=== PATIENT | female | born 1945 | race Caucasian/White ===

== ENCOUNTER 2019-07-07 14:56 | Emergency (ER) | payer MEDICARE, BC ==
[~2019-07-07] VITALS: Ht 157.5 cm; Wt 72.6 kg
[~2019-07-07 14:56] MED LIST: BAYER CHEWABLE81 MG PO; CENTRUM SILVER1 EAC4 PO; MUCINEX TA600 MG/TA2 PO; NORCO 7.5-3251 EACH; PERCOCET 7.5-31 EACH; PREDNISONE50 MG PO; VENTOLIN HFA 1818 GM INH; ZPAK PO
[2019-07-07 16:20] VITALS: BP 171/82
== END 2019-07-07 16:20 | disposition home or self-care (01) ==
LOC: M.ERS 14:56
DX: S70.11XA Contusion of right thigh, initial encounter (principal); S70.01XA Contusion of right hip, initial encounter; F17.210 Nicotine dependence, cigarettes, uncomplicated; Z90.49 Acquired absence of other specified parts of digestive tract; Z90.710 Acquired absence of both cervix and uterus; Z88.5 Allergy status to narcotic agent; Z88.2 Allergy status to sulfonamides; Z88.8 Allergy status to other drugs, medicaments and biological substances; W22.8XXA Striking against or struck by other objects, initial encounter; Y93.89 Activity, other specified; Y92.89 Other specified places as the place of occurrence of the external cause; Y99.8 Other external cause status

== ENCOUNTER 2020-11-15 15:27 | Emergency (ER) | payer MEDICARE, BC ==
[~2020-11-15] VITALS: Ht 157.5 cm; Wt 72.1 kg
[2020-11-15 16:09] LABS: ABSOLUTE EOSINOPHILS 0.1 thou/uL (0.0-0.7); ABSOLUTE LYMPHOCYTES 1.8 thou/uL (0.8-5.3); ABSOLUTE MONOCYTES 0.5 thou/uL (0.0-1.2); ABSOLUTE NEUTROPHILS 2.7 thou/uL (1.6-8.1); EOSINOPHILS 1.9 %; HEMATOCRIT 38.5 % (37.0-47.0); HEMOGLOBIN 13.3 gm/dL (12.0-15.0); LYMPHOCYTES 34.7 %; MCH 33.1 pg (26.0-34.0); MCHC 34.5 g/dL (28.0-37.0); MCV 95.9 fL (80.0-100.0); MONOCYTES 10.6 %; MPV 7.4 fl. (7.2-11.1); NUCLEATED RBCS 0 /100WBC; PLATELET COUNT* 320 thou/uL (150-400); POLYS 51.8 %; RBC 4.01 mil/uL (4.20-5.00); RDW-CV 13.5 % (10.5-14.5); WBC 5.2 thou/uL (4.0-11.0)
[2020-11-15 16:29] LABS: CALCIUM 9.2 mg/dL (8.5-10.1); CREATININE 0.8 mg/dL (0.6-1.3); POTASSIUM 4.4 mmol/L (3.5-5.1)
[2020-11-15 16:34] LABS: ALBUMIN 4.1 g/dL (3.4-5.0); TOTAL BILIRUBIN 0.3 mg/dL (<0.1-1.0); TOTAL PROTEIN 7.3 g/dL (6.4-8.2)
[2020-11-15] MEDS ORDERED: NORCO5 PO (17:23)
[2020-11-15] MEDS ORDERED: ZANAFLEX4 MG PO (17:23)
[2020-11-15 17:40] VITALS: BP 171/75
--- NOTE | 2020-11-16 12:44 | EKG ---
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: [facility] : 1945 Requested By: Claudia Marshall Order Number: [id number] MD: Nura Cardenas Measurements Intervals [place] Rate: 77 P: 43 LA: 162 QRS: -34 QRSD: 99 T: 34 QT: 406 QTc: 460 Interpretive Statements Sinus rhythm artifact noted Left axis deviation Low voltage, precordial leads late transition Compared to ECG 10/12/2015 12:01:54 Low QRS voltage now present Electronically Signed On 11-16-2020 12:43:59 [employer]OCIATE PROFESS[employer]ITERATURE by Nura Cardenas [email or web address] <ELECTRONICALLY SIGNED> By: Nura Cardenas MD, FAC 11/16/20 1243 1658 1658 Nura Cardenas MD, [facility] /EPI
== END 2020-11-15 17:43 | disposition home or self-care (01) ==
LOC: M.ERS 15:27
PROVIDERS: Nurse Practitioner Family
DX: M48.02 Spinal stenosis, cervical region (principal); R42 Dizziness and giddiness; F17.210 Nicotine dependence, cigarettes, uncomplicated; Z88.5 Allergy status to narcotic agent; Z88.2 Allergy status to sulfonamides; Z88.8 Allergy status to other drugs, medicaments and biological substances; Z90.49 Acquired absence of other specified parts of digestive tract; Z90.710 Acquired absence of both cervix and uterus

== ENCOUNTER → 2020-11-22 | Outpatient (CLI) | payer MEDICARE, BC ==
[~2020-11-22] MED LIST changes: +NORCO5 PO; +ZANAFLEX4 MG PO
== END ==
LOC: M.MRI 07:56
PROVIDERS: ATTEND Family Medicine
DX: M48.02 Spinal stenosis, cervical region (principal)

== ENCOUNTER → 2021-05-19 | Outpatient (CLI) | payer MEDICARE, BC | LOC: M.RAD 13:25 | PROVIDERS: ATTEND Family Medicine | DX: M85.89 Other specified disorders of bone density and structure, multiple sites (principal); M81.0 Age-related osteoporosis without current pathological fracture; Z78.0 Asymptomatic menopausal state ==

== ENCOUNTER → 2021-06-07 | Outpatient (CLI) | payer MEDICARE, BC | LOC: M.MRI 13:08 | PROVIDERS: ATTEND Family Medicine | DX: S83.242A Other tear of medial meniscus, current injury, left knee, initial encounter (principal); M25.462 Effusion, left knee; M17.12 Unilateral primary osteoarthritis, left knee; X58.XXXA Exposure to other specified factors, initial encounter; Y93.89 Activity, other specified; Y92.89 Other specified places as the place of occurrence of the external cause; Y99.8 Other external cause status ==